=== PATIENT | female | born 1935 | race Two or more races ===

== ENCOUNTER 2021-02-27 11:36 | Inpatient (IN) | payer MEDICARE, OTHER ==
[~2021-02-27] VITALS: Ht 160 cm; Wt 40.2 kg
[2021-02-27] MEDS ORDERED: SODIUM CHLORIDE 0.9% 500 ML IVB ONE (11:45)
[2021-02-27 13:30] LABS: Urine Bacteria FEW /hpf (None Seen); Urine Blood Negative /uL (Negative); Urine Hyaline Cast FEW /lpf (0 - 2); Urine Mucus FEW (None Seen); Urine Specific Gravity 1.021 (1.001-1.035); Urine WBC 2 /hpf (0 - 5)
[2021-02-27 13:45] LABS: Basophils # (auto) 0 10 ^3/uL (0-0.2); Basophils % (auto) 0.1 % (0.0-2.0); Eosinophils # (auto) 0 10 ^3/uL (0-0.8); Hematocrit 41.6 % (36.0-46.0); Hemoglobin 12.4 g/dL (12.2-16.2); Lymphocytes % (auto) 6.6 % (10.0-50.0); Mean Corpuscular Hemoglobin 29.4 pg (28.0-32.0); Mean Corpuscular Hgb Conc. 29.7 g/dL (32.0-36.0); Mean Corpuscular Volume 98.7 fL (80.0-100.0); Monocytes # (auto) 0.7 10 ^3/uL (0-1.3); Monocytes % (auto) 4.6 % (0.0-12.0); Neutrophils # (auto) 13.1 10 ^3/uL (1.6-8.6); Neutrophils % (auto) 88.7 % (37.0-80.0); Red Blood Cells 4.21 10^6/uL (4.0-5.20); Red Cell Distribution Width 15.5 % (11.8-14.3); White Blood Cell 14.8 10^3/uL (4.4-10.8)
[2021-02-27 14:03] LABS: Albumin 2.8 g/dL (3.4-5.0); Calcium 8.6 mg/dL (8.5-10.1); Magnesium 3.2 mg/dL (1.6-2.6); Potassium 3.3 mmol/L (3.5-5.1)
[2021-02-27 14:05] LABS: Lactic Acid w/Reflex 3.8 mmol/L (0.4-2.0)
[2021-02-27 14:09] LABS: BUN/Creatinine Ratio 36.3; Bilirubin, Total 0.5 mg/dL (0.2-1.0); Total Protein 7.7 g/dL (6.4-8.2)
[2021-02-27] MEDS ORDERED: cefTRIAXone 1GM/50ML D5W 50 ML IV ONE (14:45)
[2021-02-27] MEDS ORDERED: ACETAMINOPHEN 650 MG RECT SUPP PR ONE (14:45)
[2021-02-27] MEDS ORDERED: SOD CHL 0.45% 1,000 ML IV ONE (14:45)
[2021-02-27] MEDS ORDERED: LACTATED RINGER'S 1,000 ML IV ONE (15:00)
[2021-02-27] MEDS ORDERED: POTASSIUM CHL 20MEQ/100ML 100 ML IV ONE (15:00)
[2021-02-27] MEDS ORDERED: MAGNESIUM SULFATE 1GM/100ML 100 ML IV ONE (15:00)
[2021-02-27] MEDS: D5W 5% 1,000 ML IV SCH ×2 (15:00→23:39)
[2021-02-27] MEDS ORDERED: AZITHROMYCIN 500MG/ 250ML 250 ML IV ONE (15:15)
[2021-02-27] MEDS ORDERED: HYDROcodone-ACET 5/325MG TAB PO PRN (15:15)
[2021-02-27] MEDS ORDERED: ONDANSETRON HCL 4 MG/2 ML VIAL IV PRN (15:15)
[2021-02-27] MEDS ORDERED: MORPHINE SULFATE INJECTION 2 MG/ML SYRG IV PRN ×3 (15:15)
[2021-02-27] MEDS ORDERED: LORazepam 0.5 MG TAB PO PRN (15:15)
[2021-02-27] MEDS ORDERED: hydrALAZINE HCL 20 MG/ML VL IV PRN (15:15)
[2021-02-27] MEDS ORDERED: DEXTROSE (50%) 50ML SYRG IV PRN (15:15)
[2021-02-27] MEDS ORDERED: ACETAMINOPHEN 325 MG TAB PO PRN (15:15)
[2021-02-27] MEDS ORDERED: DOCUSATE SOD 100 MG CAP PO PRN (15:15)
[2021-02-27] MEDS ORDERED: BENAZEPRIL HCL 10 MG TAB PO ONE (15:15)
[2021-02-27] MEDS ORDERED: ALUM & MAG HYDROX-SIMETH LIQ(MAALOX) 30 ML PO PRN (15:15)
[2021-02-27] MEDS ORDERED: NITROGLYCERIN 0.4 MG SL TAB SL PRN ×2 (15:15)
[2021-02-27 16:11] LABS: Alcohol, Urine < 3.0 mg/dL (0-10); Amphetamine Screen, Urine NEGATIVE (NEGATIVE); Barbiturate Scree,Urine NEGATIVE (NEGATIVE); Benzodiazephine Screen, Urine NEGATIVE (NEGATIVE); Cannabinoid Screen, Urine NEGATIVE (NEGATIVE); Cocaine Screen, Urine NEGATIVE (NEGATIVE); Opiate Scree,Urine NEGATIVE (NEGATIVE); Phencyclidine Screen, Urine NEGATIVE (NEGATIVE)
[2021-02-27] MEDS: ACCU-CHEK COMFORT CURVE STRIP VI SCH ×2 (17:00→21:05)
[2021-02-27] MEDS: FREE WATER PO SCH (18:00)
[2021-02-27] MEDS: InsuLIN REG 1unit/0.01ml Soln (100units/ml) SC SCH ×2 (18:05→21:08)
[2021-02-27] MEDS ORDERED: dilTIAZem 25 MG/5 ML VIAL IV ONE (23:45)
[2021-02-28] MEDS ORDERED: DIGOXIN (250MCG/ML) 2 ML AMPULE IV ONE (00:15)
[2021-02-28 01:15] LABS: Basophils # (auto) 0 10 ^3/uL (0-0.2); Basophils % (auto) 0.3 % (0.0-2.0); Eosinophils # (auto) 0 10 ^3/uL (0-0.8); Hematocrit 37.5 % (36.0-46.0); Hemoglobin 11.8 g/dL (12.2-16.2); Lymphocytes # (auto) 1.6 10 ^3/uL (0.4-5.4); Lymphocytes % (auto) 13.4 % (10.0-50.0); Mean Corpuscular Hemoglobin 29.8 pg (28.0-32.0); Mean Corpuscular Hgb Conc. 31.5 g/dL (32.0-36.0); Mean Corpuscular Volume 94.6 fL (80.0-100.0); Monocytes # (auto) 0.6 10 ^3/uL (0-1.3); Monocytes % (auto) 5.3 % (0.0-12.0); Neutrophils # (auto) 9.8 10 ^3/uL (1.6-8.6); Red Blood Cells 3.97 10^6/uL (4.0-5.20); Red Cell Distribution Width 15.1 % (11.8-14.3); White Blood Cell 12.1 10^3/uL (4.4-10.8)
[2021-02-28 01:35] LABS: Albumin 2.3 g/dL (3.4-5.0); Calcium 8.2 mg/dL (8.5-10.1); Magnesium 2.5 mg/dL (1.6-2.6)
[2021-02-28 01:37] LABS: BUN/Creatinine Ratio 33.3
[2021-02-28 01:42] LABS: Bilirubin, Total 0.6 mg/dL (0.2-1.0); Total Protein 6.7 g/dL (6.4-8.2)
[2021-02-28] MEDS: POTASSIUM CHL 20MEQ/100ML 100 ML IV SCH ×2 (04:27→06:20)
[2021-02-28 05:49] LABS: Hematocrit 40.2 % (36.0-46.0); Hemoglobin 12.7 g/dL (12.2-16.2); Mean Corpuscular Hemoglobin 30.1 pg (28.0-32.0); Mean Corpuscular Hgb Conc. 31.6 g/dL (32.0-36.0); Mean Corpuscular Volume 95.3 fL (80.0-100.0); Red Blood Cells 4.21 10^6/uL (4.0-5.20); Red Cell Distribution Width 15.1 % (11.8-14.3); White Blood Cell 10.4 10^3/uL (4.4-10.8)
[2021-02-28] MEDS: FREE WATER PO SCH ×4 (06:00→18:00)
[2021-02-28 06:09] LABS: INR 1.38 (0.9-1.15); Partial Thromboplastin Time 26.5 sec (23.6-33.0)
[2021-02-28 06:14] LABS: Basophils % (manual) 0 (0.0-2.0); Blast Cells 0; Eosinophils % (manual) 0 (0-7); Myelocytes % 0; Promyelocytes % 0; Reactive Lymphocytes 0
[2021-02-28 06:18] LABS: Potassium 3.5 mmol/L (3.5-5.1)
[2021-02-28 06:35] LABS: Albumin 2.4 g/dL (3.4-5.0); BUN/Creatinine Ratio 34.2; Bilirubin, Total 0.4 mg/dL (0.2-1.0); Calcium 8.1 mg/dL (8.5-10.1); Magnesium 2.9 mg/dL (1.6-2.6); Phosphorus 2.4 mg/dL (2.5-4.90); Total Protein 6.9 g/dL (6.4-8.2)
[2021-02-28] MEDS: ACCU-CHEK COMFORT CURVE STRIP VI SCH ×4 (06:37→22:02)
[2021-02-28] MEDS: InsuLIN REG 1unit/0.01ml Soln (100units/ml) SC SCH ×4 (06:37→22:03)
[2021-02-28] MEDS: D5W 5% 1,000 ML IV SCH ×4 (07:00→22:53)
[2021-02-28 07:09] LABS: Band Neutrophils % (manual) 45; Lymphocytes % (manual) 10 (10.0-50.0); Metamyelocytes % 3; Monocytes % (manual) 3 (0-12)
[2021-02-28] MEDS ORDERED: dilTIAZem 125mg/125ml BAG KIT 125 ML IV SCH (09:00)
[2021-02-28] MEDS ORDERED: cefTRIAXone 1GM/50ML D5W 50 ML IV SCH (09:00)
[2021-02-28] MEDS ORDERED: AMIODARONE HCL 150 MG in D5W 5% 100 ML IV ONE (09:45)
[2021-02-28] MEDS ORDERED: METOPROLOL TARTRATE 1MG/1ML-5ML VIAL IV PRN (09:45)
[2021-02-28] MEDS ORDERED: LACTATED RINGER'S 1,000 ML IV ONE (09:45)
[2021-02-28] MEDS ORDERED: ENOXAPARIN SOD 40 MG/0.4 ML SYRINGE SC SCH (10:00)
[2021-02-28] MEDS: BENAZEPRIL HCL 10 MG TAB PO SCH (10:00)
[2021-02-28] MEDS ORDERED: ENOXAPARIN SOD 30 MG/0.3 ML SYRINGE SC SCH (10:00)
[2021-02-28] MEDS ORDERED: AZITHROMYCIN 500MG/ 250ML 250 ML IV SCH (10:00)
[2021-02-28] MEDS ORDERED: AMIODARONE 450mg/250ml AE 250 ML IV SCH (10:00)
[2021-02-28] MEDS ORDERED: AMIODARONE 450mg/250ml AE 250 ML IV ONE (10:09)
[2021-02-28] MEDS: ENOXAPARIN SOD 40 MG/0.4 ML SYRINGE SC SCH (11:11)
[2021-02-28] MEDS: AMIODARONE 450mg/250ml AE 250 ML IV SCH ×2 (16:16→20:00)
[2021-02-28] MEDS ORDERED: PIPERACILLIN-TAZOB 2.25GM 50 ML IV ONE (17:15)
[2021-02-28] MEDS ORDERED: VANCOMYCIN PER PHARMACY 0 MG IV SCH (17:15)
[2021-02-28] MEDS ORDERED: VANCOMYCIN 500 MG in D5W 5% 100 ML IV ONE (20:00)
[2021-03-01] MEDS: PIPERACILLIN-TAZOB 2.25GM 50 ML IV SCH ×3 (04:32→20:46)
[2021-03-01] MEDS: FREE WATER PO SCH ×4 (06:00→18:00)
[2021-03-01] MEDS: ACCU-CHEK COMFORT CURVE STRIP VI SCH ×4 (06:08→22:05)
[2021-03-01] MEDS: InsuLIN REG 1unit/0.01ml Soln (100units/ml) SC SCH ×4 (06:15→22:19)
[2021-03-01 06:53] LABS: Hemoglobin 9.1 g/dL (12.2-16.2); White Blood Cell 12.2 10^3/uL (4.4-10.8)
[2021-03-01 06:54] LABS: Hematocrit 27.3 % (36.0-46.0); Mean Corpuscular Hemoglobin 30.5 pg (28.0-32.0); Mean Corpuscular Hgb Conc. 33.2 g/dL (32.0-36.0); Mean Corpuscular Volume 91.9 fL (80.0-100.0); Red Blood Cells 2.97 10^6/uL (4.0-5.20); Red Cell Distribution Width 14.1 % (11.8-14.3)
[2021-03-01 06:58] LABS: Basophils % (manual) 0 (0.0-2.0); Blast Cells 0; Eosinophils % (manual) 0 (0-7); Metamyelocytes % 0; Myelocytes % 0; Promyelocytes % 0; Reactive Lymphocytes 0
[2021-03-01 07:08] LABS: Albumin 1.7 g/dL (3.4-5.0); Calcium 7.1 mg/dL (8.5-10.1); Magnesium 2.2 mg/dL (1.6-2.6)
[2021-03-01 07:09] LABS: INR 1.36 (0.9-1.15)
[2021-03-01 07:15] LABS: Bilirubin, Total 0.4 mg/dL (0.2-1.0); Phosphorus 1.4 mg/dL (2.5-4.90); Total Protein 5.3 g/dL (6.4-8.2)
[2021-03-01] MEDS: D5W 5% 1,000 ML IV SCH ×2 (08:00→15:00)
[2021-03-01 08:22] LABS: Band Neutrophils % (manual) 26; Lymphocytes % (manual) 6 (10.0-50.0); Monocytes % (manual) 3 (0-12)
[2021-03-01] MEDS: BENAZEPRIL HCL 10 MG TAB PO SCH (10:00)
[2021-03-01] MEDS: ENOXAPARIN SOD 40 MG/0.4 ML SYRINGE SC SCH (10:25)
[2021-03-01] MEDS: VANCOMYCIN 500 MG in D5W 5% 100 ML IV ONE ×2 (11:52→16:00)
[2021-03-01] MEDS ORDERED: POTASSIUM CHL 20MEQ/100ML 100 ML IV ONE (20:00)
[2021-03-01] MEDS: D5W/SOD CHL 0.9%/KCL 40MEQ 1,000 ML IV SCH (20:00)
[2021-03-01] MEDS: AMIODARONE 450mg/250ml AE 250 ML IV SCH (22:45)
[2021-03-02] MEDS: FREE WATER PO SCH ×4 (00:03→18:06)
[2021-03-02 03:38] LABS: Basophils # (auto) 0 10 ^3/uL (0-0.2); Eosinophils # (auto) 0.1 10 ^3/uL (0-0.8); Hemoglobin 8.4 g/dL (12.2-16.2); Mean Corpuscular Volume 91.8 fL (80.0-100.0); Red Cell Distribution Width 13.9 % (11.8-14.3)
[2021-03-02 03:40] LABS: Basophils % (auto) 0.1 % (0.0-2.0); Eosinophils % (auto) 0.5 % (0.0-7.0); Lymphocytes % (auto) 8.2 % (10.0-50.0); Mean Corpuscular Hemoglobin 29.6 pg (28.0-32.0); Mean Corpuscular Hgb Conc. 32.2 g/dL (32.0-36.0); Monocytes # (auto) 0.3 10 ^3/uL (0-1.3); Monocytes % (auto) 2.7 % (0.0-12.0); Neutrophils # (auto) 10.8 10 ^3/uL (1.6-8.6); Neutrophils % (auto) 88.5 % (37.0-80.0); Nucleated Red Blood Cells % 0.1 %; Red Blood Cells 2.83 10^6/uL (4.0-5.20); White Blood Cell 12.2 10^3/uL (4.4-10.8)
[2021-03-02 03:53] LABS: INR 1.4 (0.9-1.15); Partial Thromboplastin Time 38.7 sec (23.6-33.0)
[2021-03-02 04:03] LABS: Albumin 1.5 g/dL (3.4-5.0); BUN/Creatinine Ratio 23.1; Calcium 7.2 mg/dL (8.5-10.1); Magnesium 2.2 mg/dL (1.6-2.6); Potassium 3.4 mmol/L (3.5-5.1)
[2021-03-02 04:06] LABS: Bilirubin, Total 0.4 mg/dL (0.2-1.0); Total Protein 5.1 g/dL (6.4-8.2)
[2021-03-02] MEDS: PIPERACILLIN-TAZOB 2.25GM 50 ML IV SCH ×3 (05:10→20:20)
[2021-03-02] MEDS: AMIODARONE 450mg/250ml AE 250 ML IV SCH (05:11)
[2021-03-02] MEDS: ACCU-CHEK COMFORT CURVE STRIP VI SCH ×4 (08:01→22:04)
[2021-03-02] MEDS: InsuLIN REG 1unit/0.01ml Soln (100units/ml) SC SCH ×4 (08:01→22:45)
[2021-03-02] MEDS: BENAZEPRIL HCL 10 MG TAB PO SCH (10:00)
[2021-03-02] MEDS: D5W/SOD CHL 0.9%/KCL 40MEQ 1,000 ML IV SCH ×2 (10:08→22:44)
[2021-03-02] MEDS: ENOXAPARIN SOD 40 MG/0.4 ML SYRINGE SC SCH (10:08)
[2021-03-02] MEDS ORDERED: VANCOMYCIN 750mg/250ml 250 ML IV SCH (14:00)
[2021-03-02] MEDS ORDERED: POTASSIUM EFFERVESENT TAB 25 MEQ PO ONE (21:30)
[2021-03-03] MEDS: FREE WATER PO SCH ×4 (00:17→18:00)
[2021-03-03 04:17] LABS: Basophils # (auto) 0 10 ^3/uL (0-0.2); Basophils % (auto) 0.1 % (0.0-2.0); Eosinophils # (auto) 0.1 10 ^3/uL (0-0.8); Eosinophils % (auto) 1.2 % (0.0-7.0); Hematocrit 26.8 % (36.0-46.0); Hemoglobin 8.7 g/dL (12.2-16.2); Lymphocytes # (auto) 1.2 10 ^3/uL (0.4-5.4); Lymphocytes % (auto) 11.2 % (10.0-50.0); Mean Corpuscular Hemoglobin 29.6 pg (28.0-32.0); Mean Corpuscular Hgb Conc. 32.3 g/dL (32.0-36.0); Mean Corpuscular Volume 91.7 fL (80.0-100.0); Monocytes # (auto) 0.5 10 ^3/uL (0-1.3); Monocytes % (auto) 4.6 % (0.0-12.0); Neutrophils % (auto) 82.9 % (37.0-80.0); Nucleated Red Blood Cells % 0.1 %; Red Blood Cells 2.92 10^6/uL (4.0-5.20); Red Cell Distribution Width 14.3 % (11.8-14.3); White Blood Cell 10.8 10^3/uL (4.4-10.8)
[2021-03-03 04:29] LABS: INR 1.22 (0.9-1.15); Partial Thromboplastin Time 35.1 sec (23.6-33.0)
[2021-03-03] MEDS: AMIODARONE 450mg/250ml AE 250 ML IV SCH ×2 (04:49→18:42)
[2021-03-03] MEDS: PIPERACILLIN-TAZOB 2.25GM 50 ML IV SCH ×3 (04:49→20:23)
[2021-03-03 05:00] LABS: Potassium 3.9 mmol/L (3.5-5.1)
[2021-03-03 05:06] LABS: Albumin 1.6 g/dL (3.4-5.0); Bilirubin, Total 0.4 mg/dL (0.2-1.0); Calcium 7.1 mg/dL (8.5-10.1); Magnesium 2.2 mg/dL (1.6-2.6); Total Protein 5.3 g/dL (6.4-8.2)
[2021-03-03] MEDS: InsuLIN REG 1unit/0.01ml Soln (100units/ml) SC SCH ×4 (07:00→21:57)
[2021-03-03] MEDS: ACCU-CHEK COMFORT CURVE STRIP VI SCH ×4 (07:00→21:58)
[2021-03-03] MEDS: PANTOPRAZOLE 40 MG/10 ML VIAL INJ IV SCH (11:44)
[2021-03-03] MEDS: BENAZEPRIL HCL 10 MG TAB PO SCH (11:45)
[2021-03-03] MEDS: ENOXAPARIN SOD 30 MG/0.3 ML SYRINGE SC SCH (11:46)
[2021-03-03] MEDS: D5W/SOD CHL 0.9%/KCL 40MEQ 1,000 ML IV SCH ×2 (12:00→20:23)
[2021-03-03 16:10] VITALS: BP 123/48
[2021-03-03 17:00] VITALS: BP 123/48
[2021-03-03 22:00] VITALS: BP 144/64
[2021-03-04] MEDS: FREE WATER PO SCH ×4 (00:48→18:00)
[2021-03-04] MEDS: PIPERACILLIN-TAZOB 2.25GM 50 ML IV SCH ×3 (03:52→19:55)
[2021-03-04] MEDS: AMIODARONE 450mg/250ml AE 250 ML IV SCH ×2 (03:56→19:56)
[2021-03-04 05:07] VITALS: BP 123/52
[2021-03-04] MEDS: ACCU-CHEK COMFORT CURVE STRIP VI SCH ×4 (06:18→22:21)
[2021-03-04] MEDS: InsuLIN REG 1unit/0.01ml Soln (100units/ml) SC SCH ×4 (06:19→22:23)
[2021-03-04 07:05] LABS: Basophils # (auto) 0 10 ^3/uL (0-0.2); Basophils % (auto) 0.2 % (0.0-2.0); Eosinophils # (auto) 0.1 10 ^3/uL (0-0.8); Eosinophils % (auto) 1.5 % (0.0-7.0); Hematocrit 26.3 % (36.0-46.0); Hemoglobin 8.5 g/dL (12.2-16.2); Lymphocytes # (auto) 1.1 10 ^3/uL (0.4-5.4); Lymphocytes % (auto) 11.8 % (10.0-50.0); Mean Corpuscular Hemoglobin 30.7 pg (28.0-32.0); Mean Corpuscular Hgb Conc. 32.1 g/dL (32.0-36.0); Mean Corpuscular Volume 95.5 fL (80.0-100.0); Monocytes # (auto) 0.5 10 ^3/uL (0-1.3); Monocytes % (auto) 5.2 % (0.0-12.0); Neutrophils # (auto) 7.4 10 ^3/uL (1.6-8.6); Neutrophils % (auto) 81.3 % (37.0-80.0); Red Blood Cells 2.76 10^6/uL (4.0-5.20); Red Cell Distribution Width 14.6 % (11.8-14.3); White Blood Cell 9.2 10^3/uL (4.4-10.8)
[2021-03-04 07:27] LABS: BUN/Creatinine Ratio 9.8; Calcium 7.3 mg/dL (8.5-10.1); Potassium 3.9 mmol/L (3.5-5.1)
[2021-03-04 09:00] VITALS: BP 125/53
[2021-03-04] MEDS: PANTOPRAZOLE 40 MG/10 ML VIAL INJ IV SCH (09:39)
[2021-03-04] MEDS: ENOXAPARIN SOD 30 MG/0.3 ML SYRINGE SC SCH (09:40)
[2021-03-04] MEDS: BENAZEPRIL HCL 10 MG TAB PO SCH (09:40)
[2021-03-04 13:00] VITALS: BP 155/69
[2021-03-04] MEDS: D5W/SOD CHL 0.9%/KCL 40MEQ 1,000 ML IV SCH (14:40)
[2021-03-04 17:00] VITALS: BP 137/58
[2021-03-04 20:00] VITALS: BP 123/52
[2021-03-04 21:30] VITALS: BP 142/68
[2021-03-05] MEDS: PIPERACILLIN-TAZOB 2.25GM 50 ML IV SCH ×2 (04:36→12:03)
[2021-03-05] MEDS: D5W/SOD CHL 0.9%/KCL 40MEQ 1,000 ML IV SCH (04:43)
[2021-03-05] MEDS: FREE WATER PO SCH ×3 (05:37→12:03)
[2021-03-05] MEDS: InsuLIN REG 1unit/0.01ml Soln (100units/ml) SC SCH ×3 (06:25→17:00)
[2021-03-05] MEDS: ACCU-CHEK COMFORT CURVE STRIP VI SCH ×3 (06:29→18:22)
[2021-03-05 09:00] VITALS: BP 139/66
[2021-03-05] MEDS: BENAZEPRIL HCL 10 MG TAB PO SCH (10:53)
[2021-03-05] MEDS: ENOXAPARIN SOD 30 MG/0.3 ML SYRINGE SC SCH (10:53)
[2021-03-05] MEDS ORDERED: MET25T PO (11:06)
[2021-03-05] MEDS ORDERED: AMOX500T86 PO (11:06)
[2021-03-05 11:08] LABS: BUN/Creatinine Ratio 5.7; Calcium 6.4 mg/dL (8.5-10.1); Potassium 3.4 mmol/L (3.5-5.1)
[2021-03-05 13:00] VITALS: BP 139/55
[2021-03-05] MEDS: POTASSIUM CHL 20MEQ/100ML 100 ML IV SCH ×2 (15:30→17:01)
[2021-03-05] MEDS: AMIODARONE 450mg/250ml AE 250 ML IV SCH (16:00)
[2021-03-05 16:14] VITALS: BP 139/66
[2021-03-05 17:00] VITALS: BP 116/47
== END 2021-03-05 18:17 | disposition home or self-care (01) | DRG 871 ==
LOC: EDBD 11:36 → ER 11:36 → TELE 15:12 → TELE-CENTR 02-28 11:36
PROVIDERS: ADMIT Hospitalist; ATTEND Internal Medicine Pulmonary Disease
PROC: 06HN33Z Insertion of Infusion Device into Left Femoral Vein, Percutaneous Approach (ICD-10-PCS; principal; 2021-02-27)
DX: A41.9 Sepsis, unspecified organism (principal); J18.9 Pneumonia, unspecified organism; G93.41 Metabolic encephalopathy; E43 Unspecified severe protein-calorie malnutrition; J96.01 Acute respiratory failure with hypoxia; N39.0 Urinary tract infection, site not specified; E87.0 Hyperosmolality and hypernatremia; Z68.1 Body mass index [BMI] 19.9 or less, adult; N17.9 Acute kidney failure, unspecified; E87.1 Hypo-osmolality and hyponatremia; E86.0 Dehydration; N18.32 Chronic kidney disease, stage 3b; D69.6 Thrombocytopenia, unspecified; R62.7 Adult failure to thrive; D64.9 Anemia, unspecified; E83.41 Hypermagnesemia; E83.51 Hypocalcemia; I12.9 Hypertensive chronic kidney disease with stage 1 through stage 4 chronic kidney disease, or unspecified chronic kidney disease; E11.22 Type 2 diabetes mellitus with diabetic chronic kidney disease; E78.5 Hyperlipidemia, unspecified; I48.91 Unspecified atrial fibrillation; Z74.01 Bed confinement status; Z20.822 Contact with and (suspected) exposure to COVID-19; Z79.4 Long term (current) use of insulin; Z83.3 Family history of diabetes mellitus
CPT/HCPCS: 36415; 36556; 36600; 70450; 71045; 80048; 80053; 80061; 80202; 80307; 81001; 82270; 82565; 82728; 82805; 82962; 83036; 83605; 83735; 83880; 84100; 84295; 84484; 85007; 85025; 85027; 85610; 85730; 86141; 86850; 86900; 86901; 87040; 87045; 87077; 87086; 87186; 87426; 87427; 87493; 92610; 93005; 93306; 96361; 96365; 99291; C9113; G0378; J0696; J1815; J2543; J3480; J7060